=== PATIENT | female | born 1990 | race Caucasian/White ===

== ENCOUNTER → 2016-12-27 | Outpatient (REF) | payer OTHER ==
[2016-12-27 21:31] LABS: ALT/SGPT 16 U/L (12-78); AST/SGOT 10 U/L (15-37)
== END ==
LOC: M LAB REF 20:47 → M LABDRWAD 20:47
PROVIDERS: ATTEND Physician Assistant
DX: L50.8 Other urticaria (principal); B35.1 Tinea unguium

== ENCOUNTER → 2016-12-31 | Outpatient (REF) | payer OTHER | LOC: M SFHCWAGY 11:46 | PROVIDERS: ATTEND Nurse Practitioner Women's Health | DX: Z12.4 Encounter for screening for malignant neoplasm of cervix (principal) ==

== ENCOUNTER 2017-02-01 08:26 | Emergency (ER) | payer BC, OTHER ==
[~2017-02-01] VITALS: Ht 167.6 cm; Wt 55.8 kg
[2017-02-01] MEDS ORDERED: [UNRECOGNIZED DRUG - REMARK] (09:12)
[2017-02-01] MEDS ORDERED: MORPHINE 2 MG/ML 1ML SYRINGE IV ONE (10:15)
[2017-02-01] MEDS ORDERED: KETOROLAC 30 MG/ML VIAL (J1885) IV ONE (10:15)
[2017-02-01] MEDS ORDERED: NAPR500T2 PO (11:54)
[2017-02-01] MEDS ORDERED: PERC5TAB6 PO (11:54)
[2017-02-01] MEDS ORDERED: VALI5TAB PO (11:54)
[2017-02-01] MEDS ORDERED: ROBA750T4 PO (11:54)
[2017-02-01] MEDS ORDERED: PERCOCET 5MG/325MG TAB PO ONE (12:00)
--- NOTE | 2017-02-01 12:03 | REP ---
CERVICAL SPINE, SEVEN VIEWS: HISTORY: Neck pain. There is no acute fracture or subluxation. The intervertebral discs are normal in height. The neural foramina are patent. There is minimal loss of the normal lordotic curve. IMPRESSION: There is no acute fracture or subluxation. Signed by Talib Meadows MD 02/01/2017 12:21 P
[2017-02-01] MEDS ORDERED: MORPHINE 4 MG/ML 1ML SYRINGE IV ONE (12:45)
[2017-02-01 12:58] VITALS: BP 123/78
== END 2017-02-01 13:14 | disposition home or self-care (01) ==
LOC: M ED 10:59
DX: S16.1XXA Strain of muscle, fascia and tendon at neck level, initial encounter (principal); X58.XXXA Exposure to other specified factors, initial encounter; Y92.9 Unspecified place or not applicable; Y93.9 Activity, unspecified; Y99.9 Unspecified external cause status; Z95.0 Presence of cardiac pacemaker; Z79.899 Other long term (current) drug therapy
CPT/HCPCS: 72050; 96374; 96375; 96376; 99283; J1885; J3360

== ENCOUNTER → 2018-08-10 | Outpatient (CLI) | payer BC, OTHER ==
[~2018-08-10] MED LIST: CONRAY-43 43% 50ML VIAL (Q9960) As Ordered; PROHANCE 279.3MG/ML 5ML VIAL (A9576) As Ordered
== END ==
LOC: M RADPRO 09:27
DX: M25.562 Pain in left knee (principal)
CPT/HCPCS: 27370

== ENCOUNTER 2018-12-03 09:31 | Emergency (ER) | payer OTHER, BC ==
[~2018-12-03] VITALS: Ht 167.6 cm; Wt 56.8 kg
[2018-12-03 09:31] VITALS: BP 122/63
[~2018-12-03 09:31] MED LIST changes: -CONRAY-43 43% 50ML VIAL (Q9960) As Ordered; +NAPR-885 PO; +PERC5TAB12 PO; -PROHANCE 279.3MG/ML 5ML VIAL (A9576) As Ordered; +ROBA750T4 PO; +VALI5TAB PO; +[UNRECOGNIZED DRUG - REMARK]
--- NOTE | 2018-12-05 12:34 | REP ---
Right hand four views: There is questionably a hairline nondisplaced fracture in the head of the fifth digit proximal phalange. There is no accompanying soft tissue edema. Mineralization and joint spaces otherwise are unremarkable. No calcifications or foreign bodies. Impression: Questionable hairline nondisplaced fracture of the fifth digit as described. Electronically Signed by Javier Guerrero MD 12/03/2018 09:51 A
== END 2018-12-03 10:13 | disposition home or self-care (01) ==
LOC: M ED 09:31
DX: S60.221A Contusion of right hand, initial encounter (principal); W22.8XXA Striking against or struck by other objects, initial encounter; Y92.59 Other trade areas as the place of occurrence of the external cause; Y93.89 Activity, other specified; Z95.0 Presence of cardiac pacemaker

== ENCOUNTER 2019-01-01 09:55 | Emergency (ER) | payer OTHER, BC ==
[~2019-01-01] VITALS: Ht 167.6 cm; Wt 56.4 kg
[2019-01-01] MEDS ORDERED: TGTSUS3 PO (10:02)
[2019-01-01] MEDS ORDERED: VALI5TAB PO ×2 (11:39→11:42)
[2019-01-01] MEDS ORDERED: NAPR-837 PO (11:41)
[2019-01-01] MEDS ORDERED: KETOROLAC 60 MG/2 ML VIAL (J1885) IM ONE (11:45)
[2019-01-01 11:56] VITALS: BP 120/56
== END 2019-01-01 12:13 | disposition home or self-care (01) ==
LOC: M ED 09:55
DX: M54.2 Cervicalgia (principal); Z95.0 Presence of cardiac pacemaker
CPT/HCPCS: 81025; 96372; 99284; J1885

== ENCOUNTER 2019-05-01 15:07 | Emergency (ER) | payer BC, OTHER ==
[~2019-05-01] VITALS: Ht 167.6 cm; Wt 58.2 kg
[~2019-05-01 15:07] MED LIST changes: +NAPR-837 PO; +TGTSUS3 PO
[2019-05-01] MEDS ORDERED: prenatal otc (15:14)
[2019-05-01] MEDS ORDERED: ACETAMINOPHEN TAB 650MG DOSE (2X325MG) PO ONE (16:00)
[2019-05-01 16:05] LABS: BASO % 0.4 % (0.0-1.0); EOS % 0.4 % (0.0-3.0); HEMATOCRIT 36.8 % (36.0-47.0); HEMOGLOBIN 12.6 g/dl (12.0-15.5); LYMPH # 1.7 10^3/uL (1.5-4.5); LYMPH % 20.6 % (24.0-44.0); MEAN CORPUSCULAR HGB CONC 34.2 g/dl (32.0-36.5); MEAN CORPUSCULAR VOLUME 90.6 fl (80.0-96.0); MONO # 0.7 10^3/uL (0.0-0.8); MONO % 8.5 % (0.0-5.0); NEUTROPHILS # 5.9 10^3/uL (1.8-7.7); NEUTROPHILS % 69.6 % (36.0-66.0); PLATELET COUNT, AUTOMATED 233 10^3/uL (150-450); RED BLOOD COUNT 4.06 10^6/uL (4.00-5.40); WHITE BLOOD COUNT 8.5 10^3/uL (4.0-10.0)
[2019-05-01 16:30] LABS: ALBUMIN 3.6 GM/DL (3.2-5.2); ALT/SGPT 26 U/L (12-78); BLOOD UREA NITROGEN 9 MG/DL (7-18); CALCIUM LEVEL 8.6 MG/DL (8.5-10.1); CARBON DIOXIDE LEVEL 26 MEQ/L (21-32); CHLORIDE LEVEL 107 MEQ/L (98-107); CREATININE FOR GFR 0.65 MG/DL (0.55-1.30); GLOMERULAR FILTRATION RATE > 60.0 (>60); GLUCOSE, FASTING 80 MG/DL (70-100); HCG, SERUM QUANTITATIVE 34792 MIU/ML; SODIUM LEVEL 139 MEQ/L (136-145); TOTAL PROTEIN 7.1 GM/DL (6.4-8.2)
--- NOTE | 2019-05-01 17:17 | REP ---
FIRST TRIMESTER ULTRASOUND: Real-time sonographic evaluation of the gravid uterus is performed. There is a single living intrauterine gestation, estimated gestational age is 6 weeks 2 days based on a crown rump length of 5 mm, EDC 12/23/2019. heart rate 123 beats per minute. Subchorionic hemorrhage is noted anterior and to the right of the gestational sac, measuring 12 x 8 x 15 mm. Cystic structure of the left ovary probably represents a corpus luteum. Maximum diameter is 1.6 cm. There is no evidence of ovarian torsion bilaterally. Electronically Signed by Javier La MD 05/02/2019 10:09 A
[2019-05-01 17:56] VITALS: BP 123/58
== END 2019-05-01 17:59 | disposition home or self-care (01) ==
LOC: M ED 15:07
DX: O36.8910 Maternal care for other specified fetal problems, first trimester, not applicable or unspecified (principal); Z3A.01 Less than 8 weeks gestation of pregnancy; Z95.0 Presence of cardiac pacemaker

== ENCOUNTER → 2019-05-11 | Outpatient (CLI) | payer BC, OTHER ==
[~2019-05-11] MED LIST changes: +prenatal otc
[2019-05-11 13:02] LABS: BASO % 0.6 % (0.0-1.0); EOS % 0.3 % (0.0-3.0); HEMATOCRIT 36.9 % (36.0-47.0); HEMOGLOBIN 12.5 g/dl (12.0-15.5); LYMPH # 1.5 10^3/uL (1.5-4.5); LYMPH % 22.1 % (24.0-44.0); MEAN CORPUSCULAR HEMOGLOBIN 30.8 pg (27.0-33.0); MEAN CORPUSCULAR HGB CONC 33.9 g/dl (32.0-36.5); MEAN CORPUSCULAR VOLUME 90.9 fl (80.0-96.0); MONO # 0.6 10^3/uL (0.0-0.8); MONO % 8.5 % (0.0-5.0); NEUTROPHILS # 4.7 10^3/uL (1.8-7.7); NEUTROPHILS % 68.2 % (36.0-66.0); PLATELET COUNT, AUTOMATED 232 10^3/uL (150-450); RED BLOOD COUNT 4.06 10^6/uL (4.00-5.40); WHITE BLOOD COUNT 6.8 10^3/uL (4.0-10.0)
[2019-05-11 13:59] LABS: HEPATITIS C VIRUS ABY INDEX 0.1 INDEX (<0.8); HIV 1&2 SCREEN CENTAUR NEGATIVE (NEGATIVE); RUBELLA IgG QUALITATIVE IMMUNE (IMMUNE)
[2019-05-11 15:30] LABS: CHLAMYDIA DNA AMPLIFICATION NEGATIVE (NEGATIVE); GC DNA AMPLIFICATION NEGATIVE (NEGATIVE)
== END ==
LOC: M SMT 10:19
PROVIDERS: ATTEND Advanced Practice Midwife
DX: Z34.81 Encounter for supervision of other normal pregnancy, first trimester (principal); Z3A.00 Weeks of gestation of pregnancy not specified

== ENCOUNTER → 2019-06-01 | Outpatient (CLI) | payer OTHER, BC | LOC: M SMT 13:32 | PROVIDERS: ATTEND Advanced Practice Midwife | DX: Z34.81 Encounter for supervision of other normal pregnancy, first trimester (principal); Z3A.00 Weeks of gestation of pregnancy not specified ==

== ENCOUNTER → 2019-08-09 | Outpatient (CLI) | payer BC, OTHER ==
--- NOTE | 2019-08-09 12:17 | REP ---
Clinical: Anatomical evaluation. Comparison: None . Findings: Examination demonstrates a single live intrauterine in cephalic presentation. motion is identified by technologist. Placenta is noted anterior and grade zero without evidence for placenta previa or abruption. Amniotic fluid volume is normal. Cervix measures 5.4 cm in length and appears closed. No evidence for nuchal cord. Gestational age by LMP 20 weeks 0 days with DAPHNE 12/27/2019 . Gestational age by current measurements 20 weeks 4 days with DAPHNE 12/23/2019 . FHR equals 132 beats per minute. BPD 4.7 cm 20 weeks 0 days HC 17.8 cm 20 weeks 2 days AC 15.3 cm 20 weeks 4 days FL 3.4 cm 20 weeks 5 days HL 3.3 cm 21 weeks 2 days HC/AC ratio 1.16 Estimated weight 361 grams (67 percentile). Anatomical assessment demonstrates normal structures including cranium, choroid plexus, cavum, cerebellum/posterior fossa, facial features, lungs, four-chamber heart/ventricular outflow tracts, diaphragm, stomach, cord insertion/three-vessel cord, kidneys/bladder, spine, and extremities. Impression: Single live intrauterine in cephalic presentation demonstrating appropriate interval growth. Anatomical assessment is complete and normal. No gross abnormalities are identified. Electronically Signed by Mansoor Sherman MD 08/09/2019 12:08 P
== END ==
LOC: M RAD 10:37
PROVIDERS: ATTEND Specialist
DX: Z34.02 Encounter for supervision of normal first pregnancy, second trimester (principal); Z3A.20 20 weeks gestation of pregnancy

== ENCOUNTER → 2019-09-25 | Outpatient (CLI) | payer BC, OTHER ==
[2019-09-25 18:31] LABS: HEMATOCRIT 36.2 % (36.0-47.0); HEMOGLOBIN 12.1 g/dl (12.0-15.5); MEAN CORPUSCULAR HEMOGLOBIN 30.5 pg (27.0-33.0); MEAN CORPUSCULAR HGB CONC 33.4 g/dl (32.0-36.5); MEAN CORPUSCULAR VOLUME 91.2 fl (80.0-96.0); PLATELET COUNT, AUTOMATED 211 10^3/uL (150-450); RED BLOOD COUNT 3.97 10^6/uL (4.00-5.40); WHITE BLOOD COUNT 8.6 10^3/uL (4.0-10.0)
[2019-09-25 18:58] LABS: BILIRUBIN,DIRECT 0.2 MG/DL (0.0-0.2); BILIRUBIN,TOTAL 0.7 MG/DL (0.2-1.0); TOTAL PROTEIN 6.6 GM/DL (6.4-8.2)
== END ==
LOC: M PLALAB 14:00
PROVIDERS: ATTEND Obstetrics & Gynecology
DX: Z34.82 Encounter for supervision of other normal pregnancy, second trimester (principal); L29.9 Pruritus, unspecified

== ENCOUNTER → 2019-12-05 | Outpatient (CLI) | payer BC, OTHER | LOC: M PLALAB 09:49 | PROVIDERS: ATTEND Advanced Practice Midwife | DX: Z34.03 Encounter for supervision of normal first pregnancy, third trimester (principal) ==

== ENCOUNTER → 2019-12-05 | Outpatient (REF) | payer BC, OTHER | LOC: M SFHCWAGY 12:43 | PROVIDERS: ATTEND Advanced Practice Midwife | DX: Z34.03 Encounter for supervision of normal first pregnancy, third trimester (principal) ==

== ENCOUNTER 2019-12-31 10:56 | Inpatient (IN) | payer BC, OTHER ==
[2019-12-31] VITALS (8 sets, daily range): BP systolic 105–131; BP diastolic 55–76
[~2019-12-31] VITALS: Ht 167.6 cm; Wt 68.6 kg
[2019-12-31] MEDS ORDERED: LR 1,000 ML IV SCH (11:16)
[2019-12-31] MEDS ORDERED: LACTATED RINGER'S 1000 ML IV STA (11:16)
[2019-12-31] MEDS ORDERED: ACET-907 PO (11:21)
[2019-12-31 11:47] LABS: HEMATOCRIT 37.3 % (36.0-47.0); MEAN CORPUSCULAR HEMOGLOBIN 31.1 pg (27.0-33.0); MEAN CORPUSCULAR HGB CONC 34.9 g/dl (32.0-36.5); MEAN CORPUSCULAR VOLUME 89.2 fl (80.0-96.0); PLATELET COUNT, AUTOMATED 197 10^3/uL (150-450); RED BLOOD COUNT 4.18 10^6/uL (4.00-5.40); WHITE BLOOD COUNT 10.1 10^3/uL (4.0-10.0)
[2019-12-31] MEDS ORDERED: miSOPROStol 50 MCG 1/2 TAB (S0191) PO ONE (12:00)
[2019-12-31] MEDS ORDERED: ACETAMINOPHEN 500 MG TAB PO PRN (12:00)
--- NOTE | 2019-12-31 12:10 | HPEPDOC ---
Obstetrical History & Physical General Date of Admission Dec 31, 2019 at 10:56 Primary Care Physician: MIR SARGENT CNM History of Present Illness Patient is a 29-year-old female who is a at 40.4 weeks gestation with an DAPHNE of 12/27/19 based on her LMP and consistent with her first trimester ultrasou nd. She initiated care in her first trimester at [facility]. Her has been uncomplicated. She presents to L&D fo ran elective IOL. She reports some bloody show and cramping. She denies any leaking of fluid or contractions. She reports active movement. Chief Complaint: Induction of labor Information Provided By: Patient Age: 29 : 1 Term: 0 Pre-term: 0 Abortions: 0 Livin Care Care: Good Care Dating Final EDC: Dec 27, 2019 Final EDC by: LMP EGA at Admission: 40.4 Antepartum Course Height (inches): 66 Pre- weight (lbs.): 128 Admission Weight (lbs.): 150 Change in Weight (lbs.): 28 Past Medical History Past Obstetrical History : Past Obstetrical History: Primgravida [employer] History: Abnormal Pap, Human papillomavirus(HPV), Other (LEEP) Past Medical History Medical History Vasovagal syncope-controlled with pacemaker Surgical History: Other (LEEP and pacemaker implant) Family History Significant Family History: Cancer (bladder), Diabetes, Other (alzheimer's) Social History Marital Status: Family situation: Spouse/partner home Psychosocial History: No pertinent psych hx * Smoker: non-smoker Alcohol: Denies Drugs: denies Abuse Violence Screening Have you been hit/kicked/slapp: No Have you been sexually assault: No Imunizations Tdap status: current Allergies Coded Allergies: No Known Allergies (Unverified , 10/09/13) Medications Miscellaneous Medications Acetaminophen (Tylenol) 325 Mg Tablet, 1,000 MG PO [ otc] Physical Examination Physical Examination GENERAL: Alert and oriented times three. BREAST: . ABDOMEN: Gravid and non-tender to touch. FETUS: Is vertex (VTX) by sterile vaginal examination (SVE), fetus is vertex (VTX) by John Paul. HEART RATE: Regular rate and rhythm. LUNGS: Clear to auscultation (CTA). EXTREMITIES: No edema. No clonus. Deep tendon reflexes (DTRs) + 2. Laboratory Data 24H LABS Laboratory Tests 2 12/31/19 11:09: Serology Scanned Report Hepatitis B Testing 12/31/19 11:34: Nucleated Red Blood Cells % (auto) 0.0 CBC/BMP Laboratory Tests 12/31/19 11:34 Urine Culture: No Growth Pertinent Laboratoy Data Blood Type: A+ RBC Antibody Screen: Negative HIV: Negative Hepatitis B: Negative Hepatitis C: Negative Rapid Plasma Reagin: Nonreactive Rubella: Immune Chlamydia/Gonorrhea: Negative Group B Streptococcus: Negative Cystic Fibrosis: Negative Diag/Inter Therapy NIPT is low risk with normal male Horizon's negative for 4/4 diseases. Vaginal Examination Dilation: 1cm Effacement: 80% Station: -1 Cervical Consistency: Medium Cervical Position: Anterior Presentation: Cephalic presentation Position: Vertex (occiput) Assessment Heart Rate (FHR): 130 Variability: Moderate Accelerations: Positive Decelerations: None Tocometer Frequency: irregular Multi-drug resistant Organism: No history of MDRO Assessment/Plan Assessment IUP at 40 GBS negative Category I FHR tracing elective IOL Plan Admit to L&D. OOB ad earnest. Diet: regular then switch to clears once IV Pitocin has been started. Group B Streptococcus (GBS) negative. Labs and intravenous (IV) per unit protocol. Counseled on Cytotec, diallo bulb, and Pitocin for induction of labor. Lactated Ringers (LR): with start of Pitocin 125 cc/hr and prior to epidural a Bolus 800 mL. Anticipate cervical ripening and cervical change. C-S as appropriate. MIR SARGENT CNM Dec 31, 2019 12:10
--- NOTE | 2019-12-31 18:29 | IPNPDOC ---
Obstetrical Progress Note Date of Service Dec 31, 2019 Subjective Patient reports she is feeling cramping. Objective Vital Signs Date Time Temp Pulse Resp B/P (MAP) Pulse Ox O2 Delivery O2 Flow Rate FiO2 12/31/19 16:58 88 18 127/74 (91) 12/31/19 16:02 98.7 Assessment Heart Rate (FHR): 120 Variability: Moderate Accelerations: Positive Decelerations: None Heart Rate Tracing: Category I Tocometer Contractions: Yes Frequency: regular, every 2-5 min. Sterile Vaginal Examination Dilation: 1cm Effacement (%): 90% Station: -1 Cervical Consistency: Medium Cervical Position: Anterior Postion/Presentation: Cephalic presentation Assessment and Plan Age: 29 : 1 Term: 0 Pre-term: 0 Abortions: 0 Livin Weeks & Days 40.4 Status: Reassuring Group B Streptococcus: Negative Anticipate: Vaginal Delivery Additional Comments Anna bulb was placed 1615 with 60/40 of normal saline. Patient tolerated well. Will start IV Pitocin per order. MIR SARGENT CNM Dec 31, 2019 18:29
[2019-12-31] MEDS ORDERED: OXYTOCIN DRIP 30 UNITS in IV 1 EA IV SCH (19:00)
[2019-12-31] MEDS ORDERED: BUTORPHANOL 2 MG/ML INJ (J0595) IV ONE (19:30)
[2019-12-31] MEDS ORDERED: PROMETHAZINE INJ 25 MG/ML VIAL (J2550) IV ONE (19:30)
[2019-12-31] MEDS ORDERED: FENTANYL 2MCG/ML ROPIVACAINE 0.2% IN 0.9% NACL 100ML IVBAG As Ordered ONE (21:45)
--- NOTE | 2019-12-31 22:01 | IPNPDOC ---
Obstetrical Progress Note Date of Service Dec 31, 2019 Subjective Patient desires to get an epidural. Objective Vital Signs Date Time Temp Pulse Resp B/P (MAP) Pulse Ox O2 Delivery O2 Flow Rate FiO2 12/31/19 19:43 20 12/31/19 18:41 88 131/76 (94) 12/31/19 16:02 98.7 Assessment Heart Rate (FHR): 125 Variability: Moderate Accelerations: Positive Decelerations: None Heart Rate Tracing: Category I Tocometer Contractions: Yes Frequency: regular Sterile Vaginal Examination Dilation: 6 cm Effacement (%): 100% Station: 0 Cervical Consistency: Soft Cervical Position: Anterior Postion/Presentation: Cephalic presentation Assessment and Plan Age: 29 : 1 Term: 0 Pre-term: 0 Abortions: 0 Livin EGA at Admission: 40.5 Status: Reassuring Anticipate: Vaginal Delivery Additional Comments Anna bulb fell out when patient was on the toilet. IV Pitocin is at 8 mu/min. Patient breathing through contractions. Anesthesia notified. MIR SARGENT CNM Dec 31, 2019 22:01
[2019-12-31] MEDS ORDERED: EPIDURAL/PCA KEYS XX PRN (22:15)
[2019-12-31] MEDS ORDERED: NALOXONE INJ 0.4 MG/1 ML VIAL (J2310) IV PRN (22:15)
[2019-12-31] MEDS ORDERED: EPIDURAL COMMENT XX SCH (22:15)
[2019-12-31] MEDS ORDERED: diphenhydrAMINE INJ 50MG/ML VIAL (J1200) IV PRN (22:15)
[2019-12-31] MEDS ORDERED: LACTATED RINGER'S 1000 ML IV PRN (22:15)
[2019-12-31] MEDS ORDERED: REFRIGERATOR IV KEYS XX PRN (22:15)
[2019-12-31] MEDS ORDERED: ONDANSETRON 4MG/2ML VIAL (J2405) IV PRN (22:15)
[2019-12-31] MEDS ORDERED: FENTANYL/ROPIVACAINE/NACL BAG 100 ML EPIDURAL SCH (22:15)
[2019-12-31] MEDS ORDERED: ePHEDrine SULFATE 25 MG/5 ML(5MG/ML) SYRINGE IV PRN (22:15)
--- NOTE | 2020-01-01 02:11 | DNPDOC ---
[facility] Delivery Note Delivery Note DATE OF DELIVERY: 01/01/20 at 0111 PREDELIVERY DIAGNOSIS: 40-5/7 weeks' gestation and labor. POST DELIVERY DIAGNOSIS: Delivered. PROCEDURE: Spontaneous vaginal delivery. NAIL CUTTER: Mir Townsend CNM, CARLOS ANESTHESIA: epidural. ESTIMATED BLOOD LOSS: 350 mL. FINDINGS: 8 pounds 3 ounces; 3710 grams; male , Score 7/8, nuchal cord times x1 loose, terminal meconium. DELIVERY SUMMARY: Patient is a 29-year-old female who is now a who presented for an elective IOL. The patient received a dose of cytotec, a diallo bulb and IV Pitocin. She requested an epidural for pain management. The patient progressed to fully dilated at 0037. She was AROM at 0037 to a moderate amount of clear fluid. She pushed to a living male in the OA position with restitution to LOT at 0111. The anterior shoulder delivered with ease and the corpus immediately followed via [place]. The baby was placed on the maternal abdomen active and crying. The cord was clamped x2 after pulsation ceased and but by the FOB. The placenta delivered spontaneously with some trailing membranes that had to be manually removed. Uterine hemostasis was achieved via rapid infusion of IV Pitocin and fundal massage. The vagina, perineum and cervix were inspected and found to have a first degree perineal laceration that was repaired with a 3.[address]-1. They plan on naming their son Brian. Both mom and baby are in stable condition. All counts of instruments and sponges are correct. MIR TOWNSEND CNM Jan 01, 2020 02:11
[2020-01-01 04:00] VITALS: BP 109/59
[2020-01-01] MEDS ORDERED: OXYTOCIN DRIP 30 UNITS in IV 1 EA IV SCH (05:03)
[2020-01-01] MEDS ORDERED: ANUSOL HC CREAM 30GM TOP PRN (05:15)
[2020-01-01] MEDS ORDERED: METHYLERGONOVINE MALEATE 0.2 MG TAB PO PRN (05:15)
[2020-01-01] MEDS ORDERED: MEASLES,MUMPS,RUBELLA VACCINE INJ (MMR-II) (90707) SC SCH (05:15)
[2020-01-01] MEDS ORDERED: DOCUSATE SODIUM 100 MG CAP PO PRN (05:15)
[2020-01-01] MEDS ORDERED: ACETAMINOPHEN TAB 650MG DOSE (2X325MG) PO PRN (05:15)
[2020-01-01] MEDS ORDERED: IBUPROFEN 600 MG TAB PO PRN (05:15)
[2020-01-01] MEDS ORDERED: ACETAMINOPHEN 500 MG TAB PO PRN (05:15)
[2020-01-01] MEDS ORDERED: DIBUCAINE 1% OINTMENT 30GM TOP PRN (05:15)
[2020-01-01] MEDS ORDERED: RHOGAM 300 MCG (1500 IU) INJ (J2790) IM SCH (05:15)
[2020-01-01 06:00] VITALS: BP 120/72
[2020-01-01] MEDS: PRENATAL VITAMINS CHEWABLE TABLET PO SCH (09:47)
[2020-01-01] MEDS: IBUPROFEN 800 MG TAB PO PRN ×2 (09:48→18:33)
[2020-01-01 18:00] VITALS: BP 114/63
[2020-01-02 06:00] VITALS: BP 111/57
[2020-01-02] MEDS: PRENATAL VITAMINS CHEWABLE TABLET PO SCH (08:20)
[2020-01-02] MEDS: IBUPROFEN 800 MG TAB PO PRN (08:20)
== END 2020-01-02 15:40 | disposition home or self-care (01) | DRG 541 ==
LOC: M LDI 10:56 → M OBS 01-01 03:44
PROVIDERS: ADMIT Advanced Practice Midwife; ATTEND Advanced Practice Midwife
PROC: 3E0P7GC Introduction of Other Therapeutic Substance into Female Reproductive, Via Natural or Artificial Opening (ICD-10-PCS; 2019-12-31)
PROC: 10E0XZZ Delivery of Products of Conception, External Approach (ICD-10-PCS; principal; 2020-01-01)
PROC: 10D17ZZ Extraction of Products of Conception, Retained, Via Natural or Artificial Opening (ICD-10-PCS; 2020-01-01)
PROC: 0HQ9XZZ Repair Perineum Skin, External Approach (ICD-10-PCS; 2020-01-01)
PROC: 10907ZC Drainage of Amniotic Fluid, Therapeutic from Products of Conception, Via Natural or Artificial Opening (ICD-10-PCS; 2020-01-01)
DX: O48.0 Post-term pregnancy (principal); O70.0 First degree perineal laceration during delivery; Z3A.40 40 weeks gestation of pregnancy; O73.1 Retained portions of placenta and membranes, without hemorrhage; Z37.0 Single live birth; Z95.0 Presence of cardiac pacemaker

== ENCOUNTER → 2020-04-17 | Outpatient (REF) | payer OTHER ==
[~2020-04-17] MED LIST changes: +ACET-907 PO
== END ==
LOC: M SFHCWAGY 18:02
PROVIDERS: ATTEND Advanced Practice Midwife
DX: Z12.4 Encounter for screening for malignant neoplasm of cervix (principal)

== ENCOUNTER → 2021-04-09 | Outpatient (REF) | payer OTHER ==
[~2021-04-09] MED LIST changes: +ACET-1439 PO; -TGTSUS3 PO
== END ==
LOC: M WUC 12:50
PROVIDERS: ATTEND Physician Assistant
DX: J02.9 Acute pharyngitis, unspecified (principal)

== ENCOUNTER 2021-10-05 01:44 | Emergency (ER) | payer BC, OTHER ==
[~2021-10-05] VITALS: Ht 167.6 cm; Wt 56.0 kg
[2021-10-05 04:55] LABS: BASO % 0.1 % (0.0-1.0); HEMATOCRIT 41.3 % (36.0-47.0); HEMOGLOBIN 14.3 g/dl (12.0-15.5); LYMPH # 0.2 10^3/uL (1.5-5.0); LYMPH % 1.2 % (24.0-44.0); MEAN CORPUSCULAR HEMOGLOBIN 30.6 pg (27.0-33.0); MEAN CORPUSCULAR HGB CONC 34.6 g/dl (32.0-36.5); MEAN CORPUSCULAR VOLUME 88.2 fl (80.0-96.0); MONO # 0.4 10^3/uL (0.0-0.8); MONO % 2.6 % (2.0-8.0); NEUTROPHILS # 13.4 10^3/uL (1.5-8.5); NEUTROPHILS % 95.7 % (36.0-66.0); PLATELET COUNT, AUTOMATED 247 10^3/uL (150-450); RED BLOOD COUNT 4.68 10^6/uL (4.00-5.40)
[2021-10-05 05:41] LABS: ALBUMIN 4.1 GM/DL (3.2-5.2); ALT/SGPT 19 U/L (12-78); AMYLASE 40 U/L (25-115); BILIRUBIN,DIRECT 0.5 MG/DL (0.0-0.2); BILIRUBIN,TOTAL 2.4 MG/DL (0.2-1.0); BLOOD UREA NITROGEN 15 MG/DL (7-18); CALCIUM LEVEL 8.6 MG/DL (8.5-10.1); CARBON DIOXIDE LEVEL 25 MEQ/L (21-32); CHLORIDE LEVEL 105 MEQ/L (98-107); CREATININE FOR GFR 0.72 MG/DL (0.55-1.30); GLOMERULAR FILTRATION RATE > 60.0 (>60); GLUCOSE, FASTING 118 MG/DL (70-100); HCG, SERUM QUANTITATIVE 44086 MIU/ML; LIPASE 42 U/L (73-393); POTASSIUM SERUM 4.5 MEQ/L (3.5-5.1); SODIUM LEVEL 138 MEQ/L (136-145); TOTAL PROTEIN 7.9 GM/DL (6.4-8.2)
[2021-10-05] MEDS ORDERED: METOCLOPRAMIDE INJ 10MG/2ML VIAL (J2765 PER 1) IV ONE (06:35)
[2021-10-05] MEDS ORDERED: NS 1,000 ML IV ONE (06:35)
[2021-10-05] MEDS ORDERED: ACETAMINOPHEN TAB 650MG DOSE (2X325MG) PO ONE (07:55)
[2021-10-05] MEDS ORDERED: REGL10TA6 PO (08:48)
[2021-10-05 09:05] VITALS: BP 97/55
== END 2021-10-05 09:06 | disposition home or self-care (01) ==
LOC: M ED 01:44
DX: O21.9 Vomiting of pregnancy, unspecified (principal); Z3A.00 Weeks of gestation of pregnancy not specified
CPT/HCPCS: 76801; 80048; 80076; 81001; 82150; 83690; 84702; 85025; 96361; 96374; 99284; J2765

== ENCOUNTER → 2021-11-03 | Outpatient (CLI) | payer BC, OTHER ==
[~2021-11-03] MED LIST changes: +REGL10TA6 PO
[2021-11-03 14:00] LABS: HEMATOCRIT 37.6 % (36.0-47.0); HEMOGLOBIN 12.7 g/dl (12.0-15.5); MEAN CORPUSCULAR HEMOGLOBIN 29.7 pg (27.0-33.0); MEAN CORPUSCULAR HGB CONC 33.8 g/dl (32.0-36.5); MEAN CORPUSCULAR VOLUME 88.1 fl (80.0-96.0); PLATELET COUNT, AUTOMATED 270 10^3/uL (150-450); RED BLOOD COUNT 4.27 10^6/uL (4.00-5.40); WHITE BLOOD COUNT 9.9 10^3/uL (4.0-10.0)
[2021-11-03 15:16] LABS: HEPATITIS C VIRUS ABY INDEX < 0.0 INDEX (<0.8); HIV 1&2 SCREEN CENTAUR NEGATIVE (NEGATIVE)
[2021-11-03 15:46] LABS: GC DNA AMPLIFICATION NEGATIVE (NEGATIVE)
== END ==
LOC: M PLALAB 10:59
PROVIDERS: ATTEND Advanced Practice Midwife
DX: Z34.81 Encounter for supervision of other normal pregnancy, first trimester (principal); Z3A.00 Weeks of gestation of pregnancy not specified

== ENCOUNTER → 2021-11-04 | Outpatient (CLI) | payer BC, OTHER | LOC: M PLALAB 10:36 | PROVIDERS: ATTEND Advanced Practice Midwife | DX: Z34.81 Encounter for supervision of other normal pregnancy, first trimester (principal) ==

== ENCOUNTER → 2022-01-01 | Outpatient (CLI) | payer BC, OTHER | LOC: M WHC 08:39 | PROVIDERS: ATTEND Specialist | DX: Z36.4 Encounter for antenatal screening for fetal growth retardation (principal); Z3A.19 19 weeks gestation of pregnancy ==

== ENCOUNTER → 2022-03-09 | Outpatient (CLI) | payer BC, OTHER ==
[2022-03-09 15:51] LABS: HEMATOCRIT 34.1 % (36.0-47.0); HEMOGLOBIN 11.6 g/dl (12.0-15.5); MEAN CORPUSCULAR VOLUME 91.2 fl (80.0-96.0); PLATELET COUNT, AUTOMATED 183 10^3/uL (150-450); RED BLOOD COUNT 3.74 10^6/uL (4.00-5.40); WHITE BLOOD COUNT 8.6 10^3/uL (4.0-10.0)
== END ==
LOC: M PLALAB 13:30
PROVIDERS: ATTEND Advanced Practice Midwife
DX: Z36.89 Encounter for other specified antenatal screening (principal); O44.22 Partial placenta previa NOS or without hemorrhage, second trimester

== ENCOUNTER → 2022-03-09 | Outpatient (CLI) | payer BC, OTHER | LOC: M WHC 12:46 | PROVIDERS: ATTEND Advanced Practice Midwife | DX: Z36.2 Encounter for other antenatal screening follow-up (principal); O44.23 Partial placenta previa NOS or without hemorrhage, third trimester; Z3A.20 20 weeks gestation of pregnancy ==

== ENCOUNTER → 2022-03-16 | Outpatient (CLI) | payer BC, OTHER | LOC: M LAB 08:05 | PROVIDERS: ATTEND Advanced Practice Midwife | DX: O99.810 Abnormal glucose complicating pregnancy (principal); Z3A.00 Weeks of gestation of pregnancy not specified ==

== ENCOUNTER → 2022-04-27 | Outpatient (CLI) | payer BC, OTHER | LOC: M WHC 09:30 | PROVIDERS: ATTEND Advanced Practice Midwife | DX: O41.03X0 Oligohydramnios, third trimester, not applicable or unspecified (principal); Z3A.35 35 weeks gestation of pregnancy ==

== ENCOUNTER → 2022-04-28 | Outpatient (REF) | payer OTHER | LOC: M PLALAB 08:16 | PROVIDERS: ATTEND Advanced Practice Midwife | DX: Z36.85 Encounter for antenatal screening for Streptococcus B (principal) ==

== ENCOUNTER 2022-05-21 11:33 | Inpatient (IN) | payer BC, OTHER ==
[~2022-05-21] VITALS: Ht 167.6 cm; Wt 64.3 kg
[2022-05-21] VITALS (21 sets, daily range): BP systolic 108–135; BP diastolic 56–80
[2022-05-21] MEDS ORDERED: LACTATED RINGER'S 1000 ML IV STA (13:58)
[2022-05-21] MEDS ORDERED: TRANEXAMIC ACID INJection 1,000 MG in NS 100 ML IV PRN (14:00)
[2022-05-21] MEDS ORDERED: LIDOCAINE 1% MDV 20ML VIAL INFIL PRN (14:00)
[2022-05-21] MEDS ORDERED: OXYTOCIN INJ 10 UNITS/ML VIAL (J2590) IM PRN (14:00)
[2022-05-21] MEDS ORDERED: CARBOPROST TROMETHAMINE 250 MCG/ML AMP IM PRN (14:00)
[2022-05-21] MEDS ORDERED: METHYLERGONOVINE MALEATE 0.2 MG/ML VIAL (J2210) IM PRN (14:00)
[2022-05-21] MEDS ORDERED: OXYTOCIN DRIP 30 UNITS in IV 1 EA IV PRN (14:00)
[2022-05-21 14:19] LABS: HEMATOCRIT 38.1 % (36.0-47.0); HEMOGLOBIN 13.2 g/dl (12.0-15.5); MEAN CORPUSCULAR HGB CONC 34.6 g/dl (32.0-36.5); MEAN CORPUSCULAR VOLUME 89.4 fl (80.0-96.0); PLATELET COUNT, AUTOMATED 200 10^3/uL (150-450); RED BLOOD COUNT 4.26 10^6/uL (4.00-5.40); WHITE BLOOD COUNT 10.9 10^3/uL (4.0-10.0)
[2022-05-21] MEDS: LR 1,000 ML IV SCH ×2 (14:38→17:12)
[2022-05-21] MEDS ORDERED: FENTANYL 2MCG/ML ROPIVACAINE 0.2% IN 0.9% NACL 100ML IVBAG As Ordered ONE (15:01)
[2022-05-21] MEDS ORDERED: FENTANYL/ROPIVACAINE/NACL BAG 100 ML EPIDURAL SCH (15:55)
[2022-05-21] MEDS ORDERED: LR 500 ML IV PRN (15:55)
[2022-05-21] MEDS ORDERED: diphenhydrAMINE 50MG/ML VIAL (J1200) IV PRN (15:55)
[2022-05-21] MEDS ORDERED: ePHEDrine SULFATE 25 MG/5 ML(5MG/ML) SYRINGE IVP PRN (15:55)
[2022-05-21] MEDS ORDERED: ONDANSETRON 4MG 2ML VIAL IV PRN (15:55)
[2022-05-21] MEDS ORDERED: NALOXONE INJ 0.4MG/1ML VIAL (J2310 PER 1MG) IV PRN (15:55)
[2022-05-21] MEDS ORDERED: EPIDURAL/PCA KEYS XX PRN (15:55)
[2022-05-21] MEDS ORDERED: DOCUSATE SODIUM 100MG CAPSULE PO PRN (19:05)
[2022-05-21] MEDS ORDERED: IBUPROFEN 600MG TAB PO PRN (19:05)
[2022-05-21] MEDS ORDERED: MOM 30ML SUSPENSION UDC PO PRN (19:05)
[2022-05-21] MEDS ORDERED: ACETAMINOPHEN 500 MG TAB PO PRN (19:05)
[2022-05-21] MEDS ORDERED: IBUPROFEN 800 MG TAB PO PRN (19:05)
[2022-05-21] MEDS ORDERED: DIBUCAINE 1% OINTMENT 30GM TOP PRN (19:05)
[2022-05-21] MEDS ORDERED: ACETAMINOPHEN TAB 650MG DOSE (2X325MG) PO PRN (19:05)
[2022-05-21] MEDS ORDERED: RHOGAM 300 MCG (1500 IU) INJ (J2790) IM SCH (19:05)
[2022-05-22 06:00] VITALS: BP 106/53
[2022-05-22] MEDS: PRENATAL VITAMINS CHEWABLE TABLET PO SCH (09:02)
[2022-05-22] MEDS ORDERED: HOME MED LIST COMPLETE! XX SCH (15:05)
[2022-05-22] MEDS ORDERED: CLIN2CR PV (16:30)
[2022-05-22 18:00] VITALS: BP 101/54
[2022-05-23 06:00] VITALS: BP 104/59
[2022-05-23] MEDS: PRENATAL VITAMINS CHEWABLE TABLET PO SCH (08:46)
[2022-05-23] MEDS ORDERED: MEASLES,MUMPS,RUBELLA VACCINE INJ (MMR-II) (90707) SC.IMMUN ONE (09:00)
== END 2022-05-23 13:40 | disposition home or self-care (01) | DRG 560 ==
LOC: M LDO 11:33 → M LDI 14:05 → M OBS 21:13
PROVIDERS: ADMIT Advanced Practice Midwife; ATTEND Advanced Practice Midwife
PROC: 10E0XZZ Delivery of Products of Conception, External Approach (ICD-10-PCS; principal; 2022-05-21)
PROC: 0HQ9XZZ Repair Perineum Skin, External Approach (ICD-10-PCS; 2022-05-21)
DX: O69.82X0 Labor and delivery complicated by other cord entanglement, without compression, not applicable or unspecified (principal); O70.0 First degree perineal laceration during delivery; Z3A.39 39 weeks gestation of pregnancy; Z37.0 Single live birth; Z86.16 Personal history of COVID-19

== ENCOUNTER → 2023-12-07 | Outpatient (REF) | payer OTHER ==
[~2023-12-07] MED LIST changes: +CLIN2CR PV
== END ==
LOC: M PLALAB 09:12
PROVIDERS: ATTEND Advanced Practice Midwife
DX: Z01.419 Encounter for gynecological examination (general) (routine) without abnormal findings (principal); Z11.51 Encounter for screening for human papillomavirus (HPV)
CPT/HCPCS: 87624; G0123

== ENCOUNTER → 2024-01-13 | Outpatient (CLI) | payer BC ==
[2024-01-13 13:27] LABS: HEMATOCRIT 36.9 % (36.0-47.0); HEMOGLOBIN 12.3 g/dl (12.0-15.5); MEAN CORPUSCULAR HEMOGLOBIN 29.9 pg (27.0-33.0); MEAN CORPUSCULAR HGB CONC 33.3 g/dl (32.0-36.5); MEAN CORPUSCULAR VOLUME 89.6 fl (80.0-96.0); PLATELET COUNT, AUTOMATED 219 10^3/uL (150-450); RED BLOOD COUNT 4.12 10^6/uL (4.00-5.40); WHITE BLOOD COUNT 8.9 10^3/uL (4.0-10.0)
[2024-01-13 13:58] LABS: HIV 1&2 SCREEN NEGATIVE (NEGATIVE)
[2024-01-13 14:07] LABS: HEPATITIS C VIRUS ABY INDEX < 0.02 INDEX (<0.8)
[2024-01-13 14:34] LABS: GC DNA AMPLIFICATION NEGATIVE (NEGATIVE)
== END ==
LOC: M PLALAB 09:25
PROVIDERS: ATTEND Advanced Practice Midwife
DX: O09.521 Supervision of elderly multigravida, first trimester (principal); Z3A.00 Weeks of gestation of pregnancy not specified

== ENCOUNTER → 2024-03-23 | Outpatient (CLI) | payer BC | LOC: M WHC 09:10 | PROVIDERS: ATTEND Advanced Practice Midwife | DX: Z34.82 Encounter for supervision of other normal pregnancy, second trimester (principal); Z36.2 Encounter for other antenatal screening follow-up; Z3A.20 20 weeks gestation of pregnancy ==

== ENCOUNTER → 2024-05-23 | Outpatient (CLI) | payer BC ==
[2024-05-23 13:24] LABS: HEMATOCRIT 35.7 % (36.0-47.0); HEMOGLOBIN 11.8 g/dl (12.0-15.5); MEAN CORPUSCULAR HEMOGLOBIN 30.5 pg (27.0-33.0); MEAN CORPUSCULAR HGB CONC 33.1 g/dl (32.0-36.5); MEAN CORPUSCULAR VOLUME 92.2 fl (80.0-96.0); PLATELET COUNT, AUTOMATED 182 10^3/uL (150-450); RED BLOOD COUNT 3.87 10^6/uL (4.00-5.40); WHITE BLOOD COUNT 8.2 10^3/uL (4.0-10.0)
[2024-05-23 13:48] LABS: GLUCOSE CHALLENGE TEST 1 HOUR 81 MG/DL (LESS THAN 140)
[2024-05-23 14:18] LABS: HIV 1&2 SCREEN NEGATIVE (NEGATIVE)
== END ==
LOC: M PLALAB 09:49
PROVIDERS: ATTEND Advanced Practice Midwife
DX: Z34.82 Encounter for supervision of other normal pregnancy, second trimester (principal)

== ENCOUNTER → 2024-07-13 | Outpatient (REF) | payer BC ==
[~2024-07-13] MED LIST changes: +VENTAER INH
== END ==
LOC: M SFHCWAGY 12:41
PROVIDERS: ATTEND Advanced Practice Midwife
DX: O09.523 Supervision of elderly multigravida, third trimester (principal)

== ENCOUNTER 2024-07-17 06:49 | Emergency (ER) | payer BC ==
[~2024-07-17] VITALS: Ht 167.6 cm; Wt 65.7 kg
[~2024-07-17 06:49] MED LIST changes: -VENTAER INH
[2024-07-17 10:35] LABS: BASO % 0.2 % (0.0-1.0); EOS % 0.2 % (0.0-3.0); HEMATOCRIT 37.6 % (36.0-47.0); HEMOGLOBIN 12.8 g/dl (12.0-15.5); LYMPH # 1.3 10^3/uL (1.5-5.0); LYMPH % 15.3 % (24.0-44.0); MEAN CORPUSCULAR HEMOGLOBIN 30.3 pg (27.0-33.0); MEAN CORPUSCULAR VOLUME 88.9 fl (80.0-96.0); MONO # 0.6 10^3/uL (0.0-0.8); MONO % 6.9 % (2.0-8.0); NEUTROPHILS # 6.6 10^3/uL (1.5-8.5); NEUTROPHILS % 77.2 % (36.0-66.0); PLATELET COUNT, AUTOMATED 174 10^3/uL (150-450); RED BLOOD COUNT 4.23 10^6/uL (4.00-5.40); WHITE BLOOD COUNT 8.6 10^3/uL (4.0-10.0)
[2024-07-17 10:57] LABS: D-DIMER QUANT 1.47 ug/mL (<0.5); INR 0.98; PARTIAL THROMBOPLASTIN TIME 25.5 SECONDS (24.8-34.2); PROTHROMBIN TIME 12.7 SECONDS (12.5-14.5)
[2024-07-17 11:47] LABS: CPK CREATINE PHOSPHOKINASE 74 U/L (34-145)
[2024-07-17 11:48] LABS: BLOOD UREA NITROGEN 8 MG/DL (9-23); CARBON DIOXIDE LEVEL 26 MMOL/L (20-31); CHLORIDE LEVEL 104 MMOL/L (98-107); CK-MB VALUE MASS < 1.0 NG/ML (<3.6); CREATININE FOR GFR 0.49 MG/DL (0.55-1.30); GLOMERULAR FILTRATION RATE > 60.0 (>60); GLUCOSE, FASTING 69 MG/DL (60-100); MB/CK RELATIVE INDEX 1.35 (< OR =4); POTASSIUM SERUM 3.9 MMOL/L (3.5-5.1); SODIUM LEVEL 134 MMOL/L (136-145)
[2024-07-17] MEDS ORDERED: ISOVUE-370 76% 100ML VIAL As Ordered ONE (11:57)
[2024-07-17] MEDS ORDERED: VENTAER INH (12:59)
[2024-07-17 13:05] VITALS: BP 109/63; TEMP 97.7; O2SAT 97
== END 2024-07-17 13:11 | disposition home or self-care (01) ==
LOC: M ED 06:49
DX: R07.89 Other chest pain (principal); Z34.83 Encounter for supervision of other normal pregnancy, third trimester; Z79.51 Long term (current) use of inhaled steroids; Z79.2 Long term (current) use of antibiotics
CPT/HCPCS: 36415; 71275; 80048; 82550; 82553; 84484; 85025; 85379; 85610; 85730; 87486; 87581; 87633; 87798; 93005; 93041; 93970; 99285; Q9967

== ENCOUNTER 2024-07-30 19:24 | Inpatient (IN) | payer BC ==
[~2024-07-30] VITALS: Ht 167.6 cm; Wt 67.3 kg
[2024-07-30] VITALS (11 sets, daily range): BP systolic 90–181; BP diastolic 52–107
[~2024-07-30 19:24] MED LIST changes: +VENTAER INH
[2024-07-30 21:49] LABS: HEMATOCRIT 34.4 % (36.0-47.0); HEMOGLOBIN 12.3 g/dl (12.0-15.5); MEAN CORPUSCULAR HEMOGLOBIN 31.2 pg (27.0-33.0); MEAN CORPUSCULAR HGB CONC 35.8 g/dl (32.0-36.5); MEAN CORPUSCULAR VOLUME 87.3 fl (80.0-96.0); PLATELET COUNT, AUTOMATED 205 10^3/uL (150-450); RED BLOOD COUNT 3.94 10^6/uL (4.00-5.40); WHITE BLOOD COUNT 10.5 10^3/uL (4.0-10.0)
[2024-07-30] MEDS ORDERED: TRANEXAMIC ACID INJection 1,000 MG in NS 100 ML IV PRN (21:55)
[2024-07-30] MEDS ORDERED: OXYTOCIN INJ 10UNITS/ML 1ML VIAL IM PRN (21:55)
[2024-07-30] MEDS ORDERED: CARBOPROST TROMETHAMINE 250 MCG/ML AMP IM PRN (21:55)
[2024-07-30] MEDS ORDERED: METHYLERGONOVINE MALEATE 0.2MG/ML 1ML VIAL IM PRN (21:55)
[2024-07-30] MEDS ORDERED: diphenhydrAMINE 50MG/ML VIAL IV PRN (22:00)
[2024-07-30] MEDS ORDERED: EPIDURAL/PCA KEYS XX PRN (22:00)
[2024-07-30] MEDS ORDERED: LR 500 ML IV PRN (22:00)
[2024-07-30] MEDS ORDERED: ONDANSETRON 4MG 2ML VIAL IV PRN (22:00)
[2024-07-30] MEDS ORDERED: NALOXONE INJ 0.4MG/1ML VIAL IV PRN (22:00)
[2024-07-30] MEDS ORDERED: ePHEDrine SULFATE 25 MG/5 ML(5MG/ML) SYRINGE IVP PRN (22:00)
[2024-07-30] MEDS: LACTATED RINGER'S 1000 ML IV STA (22:38)
[2024-07-30 22:57] LABS: HEPATITIS C VIRUS ABY INDEX 0.02 INDEX (<0.8)
[2024-07-30] MEDS: LIDOCAINE 1% MDV 20ML VIAL INFIL PRN (23:17)
[2024-07-30] MEDS: OXYTOCIN DRIP 30 UNITS in IV 1 EA IV PRN (23:17)
[2024-07-30] MEDS: FENTANYL/ROPIVACAINE/NACL BAG 100 ML EPIDURAL SCH (23:17)
[2024-07-30] MEDS ORDERED: ANUSOL HC CREAM 30GM TOP PRN (23:35)
[2024-07-30] MEDS ORDERED: MOM 30ML SUSPENSION UDC PO PRN (23:35)
[2024-07-30] MEDS ORDERED: ACETAMINOPHEN 325 MG TAB PO PRN (23:35)
[2024-07-30] MEDS ORDERED: IBUPROFEN 600MG TAB PO PRN (23:35)
[2024-07-30] MEDS ORDERED: ACETAMINOPHEN 500 MG TAB PO PRN (23:35)
[2024-07-31 00:05] VITALS: BP 103/64
[2024-07-31 00:07] VITALS: BP 109/55
[2024-07-31 01:40] VITALS: BP 112/55; O2SAT 99
[2024-07-31 05:52] VITALS: BP 90/55; O2SAT 99
[2024-07-31] MEDS: PRENATAL VITAMINS CHEWABLE TABLET PO SCH (09:00)
[2024-07-31] MEDS: DIBUCAINE 1% OINTMENT 30GM TOP PRN (10:38)
[2024-07-31 10:39] VITALS: BP 116/59; O2SAT 86
[2024-07-31 18:00] VITALS: BP 121/61; O2SAT 97
[2024-07-31] MEDS: DOCUSATE SODIUM 100MG CAPSULE PO PRN (20:21)
[2024-07-31] MEDS: IBUPROFEN 800 MG TAB PO PRN (20:22)
[2024-08-01 06:01] VITALS: BP 102/56; O2SAT 97
[2024-08-01] MEDS: RHOGAM 300MCG (1500IU) INJ IM SCH (07:34)
[2024-08-01] MEDS: MEASLES,MUMPS,RUBELLA VACCINE INJ (MMR-II) SC.IMMUN ONE (09:00)
== END 2024-08-01 12:40 | disposition home or self-care (01) | DRG 560 ==
LOC: M LDO 19:24 → M LDI 21:27 → M OBS 07-31 01:39
PROVIDERS: ADMIT Advanced Practice Midwife; ATTEND Advanced Practice Midwife
PROC: 10E0XZZ Delivery of Products of Conception, External Approach (ICD-10-PCS; principal; 2024-07-30)
PROC: 0HQ9XZZ Repair Perineum Skin, External Approach (ICD-10-PCS; 2024-07-30)
DX: O70.0 First degree perineal laceration during delivery (principal); Z3A.38 38 weeks gestation of pregnancy; Z37.0 Single live birth

== ENCOUNTER → 2024-11-25 | Outpatient (REF) | payer BC | LOC: M LAB REF 17:25 | PROVIDERS: ATTEND Physician Assistant Medical | DX: B34.9 Viral infection, unspecified (principal) ==